=== PATIENT | male | born 1945 | race Caucasian/White ===

== ENCOUNTER → 2018-04-20 | Outpatient (CLI) | payer MEDICARE, BC ==
[2014-07-10 21:07] VITALS: BP 148/80
[~2018-04-20] MED LIST: FLOMAX 0.40.4 MG/CAP PO; NORCO 325 MG-51 TA1 PO; TORADOL10 MG PO; ZOFRAN ODT8 MG PO
== END ==
LOC: PT 13:45 → EDSTATUS 14:38
DX: Z01.818 Encounter for other preprocedural examination (principal)

== ENCOUNTER 2018-06-23 13:00 | Outpatient (RCR) | payer MEDICARE, BC ==
[2014-07-10 21:07] VITALS: BP 148/80
== END 2018-06-23 13:30 | disposition home or self-care (01) ==
LOC: PT 13:00
DX: Z47.1 Aftercare following joint replacement surgery (principal); Z96.651 Presence of right artificial knee joint; F17.220 Nicotine dependence, chewing tobacco, uncomplicated; Z95.1 Presence of aortocoronary bypass graft
CPT/HCPCS: G8978-GP; G8979-GP

== ENCOUNTER 2020-09-22 15:46 | Emergency (ER) | payer MEDICARE, BC ==
[2020-09-22] MEDS ORDERED: ATORVASTATIN CA40 MG PO (15:56)
[2020-09-22] MEDS ORDERED: LISINOPRIL10 MG PO (16:01)
[2020-09-22] MEDS ORDERED: CARVEDILOL6.25 MG PO (16:01)
[2020-09-22 17:02] VITALS: BP 120/67
== END 2020-09-22 16:57 | disposition home or self-care (01) ==
LOC: ED 15:46
DX: S09.90XA Unspecified injury of head, initial encounter (principal); S01.01XA Laceration without foreign body of scalp, initial encounter; I25.10 Atherosclerotic heart disease of native coronary artery without angina pectoris; Z79.82 Long term (current) use of aspirin; W18.09XA Striking against other object with subsequent fall, initial encounter; Y92.096 Garden or yard of other non-institutional residence as the place of occurrence of the external cause
CPT/HCPCS: 90715

== ENCOUNTER → 2023-04-27 | Outpatient (CLI) | payer MEDICARE, BC ==
[~2023-04-27] MED LIST changes: +ATORVASTATIN CA40 MG PO; +CARVEDILOL6.25 MG PO; +LISINOPRIL10 MG PO
== END ==
LOC: RAD 09:29
DX: K80.20 Calculus of gallbladder without cholecystitis without obstruction (principal); R91.1 Solitary pulmonary nodule; D64.9 Anemia, unspecified; Z85.828 Personal history of other malignant neoplasm of skin
CPT/HCPCS: Q9967